=== PATIENT | female | born 1950 | race Caucasian/White ===

== ENCOUNTER 2023-08-11 17:42 | Emergency (ER) | payer MEDICARE, OTHER, SELFPAY ==
[2023-08-11 17:44] VITALS: BP 131/88
[2023-08-11 18:10] LABS: Urine Albumin Trace (Neg - Trace); Urine Bilirubin Negative (Negative); Urine Character Clear (Clear); Urine Color Yellow; Urine Glucose Negative (Negative); Urine Ketone Negative (Negative); Urine Leukocyte Negative (Negative); Urine Nitrite Negative (Negative); Urine Occult Blood 1+ (Negative); Urine Urobilinogen Negative (Neg - 1+)
[2023-08-11 18:16] LABS: % Basophils 0.5 % (0-2); % Eosinophils 0.2 % (0-6); % Immature Granulocytes 0.4 % (0-0.5); % Lymphocytes 13.1 % (20.5-51.1); % Neutrophils 78.8 % (42.2-75.2); Absolute Basophils 0.1 10^3/uL (0-0.2); Absolute Immature Granulocytes 0.1 10^3/uL (0-0.05); Absolute Lymphocytes 1.7 10^3/uL (1.2-3.4); Absolute Monocytes 0.9 10^3/uL (0.1-0.6); Absolute Neutrophils 10.1 10^3/uL (1.4-6.5); Hematocrit 43.5 % (37.0-47.0); Hemoglobin 15.3 g/dL (12.0-16.0); Mean Corp Hgb Conc. 35.2 g/dL (33.0-37.0); Mean Corpuscular Hgb 30.7 pg (27.0-31.0); Mean Corpuscular Volume 87.2 fL (81.0-99.0); Nucleated Red Blood Cells % 0 %; Platelet Count 336 10^3/uL (130-400); Red Blood Cell Count 4.99 10^6/uL (4.20-5.40); Red Cell Dist. Width 12.2 % (11.5-14.5); White Blood Cell Count 12.8 10^3/uL (4.8-10.8)
[2023-08-11 18:17] LABS: Urine Red Blood Cell 0-2 /HPF (0-2); Urine Squamous Cell 0-2 /LPF (Few)
[2023-08-11 18:25] LABS: Amphetamines Negative (Negative); Barbiturates Negative (Negative); Benzodiazepines Negative (Negative); Buprenorphine Negative (Negative); Cocaine Negative (Negative); Marijuana Negative (Negative); Methadone Negative (Negative); Methamphetamines Negative (Negative); Opiates Negative (Negative); Phencyclidine Negative (Negative); Tricyclic Antidepressants Negative (Negative)
[2023-08-11 18:33] LABS: ALT (SGPT) 20 U/L (0-35); AST (SGOT) 27 U/L (14-36); Alkaline Phosphatase 77 U/L (38-126); Blood Urea Nitrogen 18 mg/dl (7-17); Calcium 10.7 mg/dl (8.4-10.2); Carbon Dioxide 28 mmol/L (22-30); Chloride 102 mmol/L (98-107); Estimated Creatinine Clearance 44 ml/min; Glucose 122 mg/dl (70-99); Potassium 4.9 mmol/L (3.5-5.1); Sodium 136 mmol/L (135-145); Total Bilirubin 0.6 mg/dl (0.2-1.3); Total Protein 8.5 g/dl (6.3-8.2); eGFR > 60.00
[2023-08-11 18:34] LABS: Alcohol None Detected
--- NOTE | 2023-08-11 18:47 | ED.GENMED ---
History of Present Illness
General
Chief Complaint: Psychiatric Problem
Source: patient and other (Nursing)
Exam Limitations: none
Time Seen by Provider: 08/11/23 18:25
Travel History
Have you had any contact with someone who has COVID-19?: No
Do you have any symptoms of coronavirus? Fever > 100 degrees, chills, cough, shortness of breath, sore throat, loss of taste or smell, muscle aches, or headache?: No
History of Present Illness
History of Present Illness:
This is a 72 year old female that comes in with needing Medical clearance for [facility]. Told by nursing staff that the patient was taken to [facility] by her brother. Patient states that she hasn't slept in 4 days and that she is
depressed. State that she is scarred about everything and can't calm down. States that she has had a dull headache. Denies any suicidal thoughts. Denies any fever, chills, chest pain, SOB, abd pain, nasuea, vomiting, diarrhea, dizziness, urinary
burning.
Past History
Past History
ED Past Medical History: Psychiatric (Anxiety) and Other (Palpitations)
ED Past Surgical History: Gynecological (D & C)
Social History
Tobacco: Former smoker
Alcohol: None
Personal:
Living: with family
Employment: Employed
Family History
Family History: CAD (brother); Negative Early CAD
Review of Systems
Review of Systems
All Other Systems: ROS reviewed and negative except as documented in HPI and ROS
Constitutional: Reports no symptoms; Denies fever or chills
EENT: Reports no symptoms
Respiratory: Reports no symptoms; Denies cough or trouble breathing
Cardiac: Reports no symptoms; Denies chest pain
ABD/GI: Reports no symptoms; Denies abdominal pain, nausea, vomiting or diarrhea
: Reports no symptoms; Denies dysuria, frequency or urgency
Musculoskeletal: Reports no symptoms
Skin: Reports no symptoms
Neurological: Reports headache; Denies dizzy
Psychiatric: Reports no symptoms
Phy Exam
General Physical Exam
General Presentation: no apparent distress
General age: appears stated age
General Skin: warm and dry
General Habitus: elderly
General Mental: alert and anxious
General Hydration: appears well hydrated
ENT Exam
ENT Exam: TM's normal, pharynx normal and neck supple
Eye Exam
Eye Exam: EOMI
Cardiovascular Exam
Cardiovascular Exam: regular rate/rhythm, no edema, no murmur and normal peripheral pulses
Pulmonary Exam
Pulmonary Exam: lungs clear, no respiratory distress, no rales, chest non tender, no crackles, no rhonchi, no wheezing and no cough
Gastrointestinal Exam
Gastrointestinal Exam: normal bowel sounds, non tender, soft, no organomegaly, no pulsatile mass and non distended
Musculoskeletal Exam
Musculoskeletal Exam: full ROM and no edema
Skin Exam
Skin Exam: normal color, warm/dry, no rash and no petechia
Psychiatric Exam
Psychiatric Exam: normal mood/affect
Course
Orders/Labs/Results
Orders:
Orders
08/11/23 17:56
Electrocardiogram (*1) Urgent
Reason for Study: QTc Monitoring
CT Head W/o Iv Contrast Urgent
Comment: not sleeping, clearance for [facility]
Reason For Exam: Altered mental status
08/11/23 17:59
EKG- Treatment ONCE
08/11/23 18:04
Urinalysis Reflex To Culture Urgent
Date Specimen was Collected: 08/11/23
Time Specimen was Collected: 18:00
Urine Drug Abuse Screen Urgent
Date Specimen was Collected: 08/11/23
Time Specimen was Collected: 17:55
Urine Microscopic Reflex Cult Urgent
08/11/23 18:09
Alcohol Urgent
Complete Blood Count/With Diff Urgent
Comprehensive Metabolic Panel Urgent
TSH Reflex To Free T4 Urgent
Abnormal Lab Results
08/11/23 08/11/23
18:04 18:09
WBC 12.8 H 10^3/uL
(4.8-10.8)
Abs Immat Gran (auto) 0.1 H 10^3/uL
(0-0.05)
Absolute Neuts (auto) 10.1 H 10^3/uL
(1.4-6.5)
Absolute Monos (auto) 0.9 H 10^3/uL
(0.1-0.6)
Neutrophils % 78.8 H %
(42.2-75.2)
Lymphocytes % 13.1 L %
(20.5-51.1)
BUN 18 H mg/dl
(7-17)
Glucose 122 H mg/dl
(70-99)
Calcium 10.7 H mg/dl
(8.4-10.2)
Total Protein 8.5 H g/dl
(6.3-8.2)
Ur Occult Blood Reflex 1+ A
(Negative)
08/11/23 18:09
08/11/23 18:09
WBC slightly elevated. Slight Dehydration. Glucose nonfasting. Calcium slightly elevated. Total protein slightly elevated. Urine negative for infection or drugs. Alcohol negative
Vital Signs
Initial and Last Documented VS:
Initial Vital Signs
Temp Pulse Resp BP Pulse Ox
98 F 104 20 131/88 99
08/11/23 17:44 08/11/23 17:44 08/11/23 17:44 08/11/23 17:44 08/11/23 17:44
Last Documented Vital Signs
Temp Pulse Resp BP Pulse Ox
98 F 89 14 126/74 99
08/11/23 17:44 08/11/23 19:20 08/11/23 19:20 08/11/23 19:20 08/11/23 19:20
MDM/Problems Addressed
Differential Diagnosis Includes:
Anxiety, Depression,
MDM/Problems Addressed:
This is a 72 year old female that comes in with c/o needing clearance for [facility]. State that she hasn't slept in 4 days. State that she is scarred about everything and that she can't calm down. States that she is depressed. Patient went to
[facility] and was told to come for Medical clearance with a list from [facility].
Will get labs, CT head, Urine and urine drug.
Back into see patient. Patient CT of the head is normal. Patient Blood work shows a slightly elevated of WBC but this could be stress related. Urine is negative for infection and negative for Drugs. Will discharge. Nursing is faxing all information
to [facility] as this is patient plan to return there for admission.
Chronic conditions affecting care: Psychiatric illness
Acute Exacerbation and/or Progression of Chronic Illness: Psychiatric illness
*Radiology
Radiology exam reviewed: radiology read reviewed (CT head-There are no focal or acute intracranial abnormalities. There is mild diffuse cortical and cerebellar atrophy. )
*Pulse Oximetry
Patient hypoxic: no
*EKG
Interpreted by ED Provider?: Yes
Heart Rate: 98
Rate: normal
Rhythm: sinus
[place]: normal axis
Interval: normal interval
QRS Pattern: normal QRS
Ischemia: no ischemia
*Coagulating Operator Interpretation
Rate: Coagulating Operator- N/A
*Critical Care Note
Total Time (30-74mins, 75-104mins- exclusive of procedures): Not Applicable
ED Attending Note
-
Portions of this chart may have been created with voice recognition software.� Occasional wrong word or��sound alike� substitutions may have occurred due to the inherent limitations of voice recognition software.
Discharge Plan
Departure
Patient Disposition: Home (Routine Discharge)
Date of Disposition: 08/11/23
Time of Disposition: 19:49
Patient with high blood pressure during this ER visit?: No
Condition: Good
Covid-19: Not Applicable
Discharge Problem:
Anxiety, Medical clearance for psychiatric admission
Instructions: Depression, Adult (DC), Generalized Anxiety Disorder (DC)
Prescriptions:
No Action
No Current Medications
0
Referrals:
Yadira Willett CRNP [Family Provider] -
Activity Restrictions/Additional Instructions:
As discussed, your CT of the head is normal. Your blood work shows that your WBC are slightly elevated. This may be due to stress. Your Urine is negative for infection and the urine drug was negative. Please follow up with [facility] as planned.
IF YOU HAVE ANY OTHER CONCERNS PLEASE RETURN TO THE EMERGENCY ROOM.
Interventions
Interventions:
*Risk Screen - Suicide Last Done: 08/11/23 17:44
*Neglect/Abuse Screening Last Done: 08/11/23 17:44
ED- Fall Risk Assessment Last Done: 08/11/23 17:44
*ED COVID-19 Vaccine History Last Done: 08/11/23 17:44
ED-Psychological Assessment Last Done: 08/11/23 18:19
Discharge Date and Time
Print Language: [email or web address]
[2023-08-11 19:03] LABS: TSH Reflex To Free T4 2.06 uIU/ml (0.47-4.68)
[2023-08-11 19:20] VITALS: BP 126/74
[2023-08-11 21:47] VITALS: BP 134/68
== END 2023-08-11 22:10 | disposition home or self-care (01) ==
LOC: EMR 17:42
PROVIDERS: Emergency Medicine; EMERGENCY PHYSICIAN Emergency Medicine; FAMILY PHYSICIAN Nurse Practitioner
DX: F41.9 Anxiety disorder, unspecified (principal); Z13.39 Encounter for screening examination for other mental health and behavioral disorders; Z87.891 Personal history of nicotine dependence
CPT/HCPCS: 99285; 70450; 80053; 80306; 81003; 81015; 82077; 84443; 85025; 93005

== ENCOUNTER → 2024-01-17 15:19 | Outpatient (REF) | payer MEDICARE, OTHER, SELFPAY | LOC: WDC 15:19 | PROVIDERS: ATTENDING PHYSICIAN Nurse Practitioner Family | DX: Z12.31 Encounter for screening mammogram for malignant neoplasm of breast (principal) | CPT/HCPCS: 77063; 77067 ==

== ENCOUNTER → 2025-01-29 14:47 | Outpatient (REF) | payer MEDICARE, OTHER, SELFPAY | LOC: WDC 14:47 | PROVIDERS: ATTENDING PHYSICIAN Nurse Practitioner | DX: Z12.31 Encounter for screening mammogram for malignant neoplasm of breast (principal) | CPT/HCPCS: 77063; 77067 ==